=== PATIENT | female | born 1995 | race Caucasian/White ===

== ENCOUNTER 2025-01-09 15:30 | Outpatient (AMB) | payer OTHER, SELFPAY ==
--- NOTE | 2025-01-09 15:40 | A.OFFPC_ITS ---
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 Is last menstrual period known: Yes Last menstrual period: 01/03/25 Post menopausal: No Patient : No Allergies No Known Allergies Allergy (Verified 01/09/25 15:44) Tobacco use date assessed: 01/09/25 Dental Screening Dental Screen Date: 01/09/25 Did you have a dental visit in the last 12 months?: Yes Did you have a dental problem in the last 6 months where you did not have access to dental care?: No Was dental information given to patient?: Patient has dentist HPI HPI Comments History of Present Illness Details This is a 29-year-old female with a past medical history of anxiety presenting to establish care. She transferred from [facility]. Her last physical was over a year ago. She is frustrated about her weight. Within the past 6 months she has been following a daily exercise routine on her treadmill and walking outside. She is also following a low-carbohydrate diet and tried factor meals. She avoids alcohol and has decreased portion sizes. Despite all of this she has not been able to lose weight successfully. She is overweight by BMI of 26.8. Her vaccination records scanned into the chart. She received 2 doses of the Pfizer COVID-19 vaccine on 03/03/2021 and 04/02/2021. She would like refills on her control pill and anxiety medication. She ran out of fluoxetine a few weeks ago, and she has not felt great since then. She has increased anxiety. 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 Denies depression. 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 She is referred. ROS: Constitutional: No unexplained weight loss, fever, chills, fatigue or night sweats. Eyes: No vision changes, blurry vision, double vision, eye pain, eye redness, eye discharge. ENT: No hearing loss, sneezing, congestion, runny nose or sore throat. Respiratory: No shortness of breath, cough or sputum production. Cardiovascular: No chest pain, chest pressure or chest discomfort. No palpitations or pedal edema. Gastrointestinal: No anorexia, nausea, vomiting or diarrhea. No abdominal pain or blood in stool. Genitourinary: No dysuria, hematuria, urinary frequency. Neurologic: No headache, dizziness, syncope, unilateral weakness, ataxia, numbness or tingling in the extremities. Musculoskeletal: No muscle pain, back pain, joint pain or swelling. Hematologic/Lymphatics: No bleeding or bruising. No painful lymph nodes. Skin: No rash or itching. Endocrine: No cold or heat intolerance. No polyuria or polydipsia. Psychiatric: No depression. No SI/HI. Physical exam: Constitutional: Alert, in no distress. Head: Normocephalic. Eyes: Pupils are equal, round and reactive to light. Extraocular muscles intact. Ear, Nose and Throat: Canals clear. TMs normal. Normal nasal mucosa. No nasal discharge. No oral lesions. Neck: Supple, Full range of motion. No lymphadenopathy. No palpable thyroid masses. Respiratory: Clear to auscultation. Cardiovascular: S1 S2 regular. No murmurs. Gastrointestinal: Abdomen soft, non-tender, non-distended. Normal bowel sounds. No palpable masses. Genitourinary: No costovertebral angle tenderness. Neurologic: No focal neurological deficits. Symmetric patellar reflexes. Moves all extremities spontaneously. Sensation intact bilaterally. Skin: No rashes Musculoskeletal: No gross deformities. Normal range of motion. Extremities: Warm and well perfused. No clubbing, cyanosis or edema. 3+ peripheral pulses bilaterally. Psychiatric: Normal mood and affect [facility] Medical History (Updated 01/09/25 @ 17:54 by LOS French) Routine physical examination Overweight (BMI 25.0-29.9) Anxiety Screening for cardiovascular condition Family History (Updated 01/09/25 @ 17:56 by LOS French) Father Hypertension Alcoholism Maternal Grandmother Hypertension Diabetes Maternal Grandfather Pancreatic cancer Social History (Updated 01/09/25 @ 15:49 by Susan Chirinos MA) Housing: House Alcohol intake: current Comment: Socially Patient Tobacco Use Status: Never used Tobacco e-Cigarette/Vaping Use: Never Used Second Hand Smoke Exposure: No service: No Current occupational status: employed Current occupation: [employer] Current occupational exposures/hazards: No Cognitive needs: No Hearing needs: No Vision needs: No Female Reproductive History Menstrual Age of Menarche: 11 Duration of menses: 3-5 days Date of last menstrual period: 01/03/25 control method: pills Total pregnancies: 0 History of abnormal pap smear: No History of STI: No Date of Mammogram: 12/21/22 History of abnormal mammogram: No Questionnaire PHQ-9 Over the last 2 weeks, how often have you been bothered by any of the following problems? 1. Little interest or pleasure in doing things: not at all 2. Feeling down, depressed, or hopeless: not at all 3. Trouble falling or staying asleep, or sleeping too much: not at all 4. Feeling tired or having little energy: several days 5. Poor appetite or overeating: not at all 6. Feeling bad about yourself - or that you are a failure or have let yourself or your family down: not at all 7. Trouble concentrating on things, such as reading the newspaper or watching t elevision: not at all 8. Moving or speaking so slowly that other people could have noticed. Or the opposite - being so fidgety or restless that you have been moving around a lot more than usual: not at all 9. Thoughts that you would be better off or of hurting yourself in some way: not at all Total score: 1 Depression Screening Interpretation: Negative Depression Screening Done: Yes 55206 - PHQ-9 Billing: Patient declined-do not bill Source: Developed by Drs. Fermin Kendrick, Anel Jensen, Erik Sharp and colleagues, with an educational valerie from [employer]. Thrive Questionnaire Date Thrive assessed: 01/09/25 I am a: Patient What is your living situation today?: I have a steady place to live Within the past 12 months, did the food you bought not last and you didn't have the money to get more?: I choose not to answer this question Within the past 12 months, did you worry whether your food would run out before you got money to buy more?: I choose not to answer this question Do you have trouble paying for medicines?: I choose not to answer this question Do you have trouble getting transportation to medical appointments?: I choose not to answer this question Do you have trouble paying your heating and electricity bill?: I choose not to answer this question Do you have trouble taking care of your child, family member or friend?: No Do you have trouble with day-to-day activities such as bathing, preparing meals, shopping, managing finances, etc.?: No Are you currently unemployed and looking for a job?: No Are you interested in more education?: No Please select the resources that you would like help with: None Currently or been in a relationship where the following occur: No concerns reported THRIVE Score: 0 AUDIT C Alcohol Use Questionnaire (AUDIT-C) 1. How often do you have a drink containing alcohol?: 2-4 times a month 2. How many drinks containing alcohol do you have on a typical day when you are drinking?: 1 or 2 3. How often do you have six or more drinks on one occasion?: Never Total Score: 2 BEN-7 AMB Questionnaire BEN-7 Date BEN - 7 assessed: 01/09/25 Feeling nervous, anxious, or on edge: 1 = Several days Not being able to stop or control worryin = Several days Worrying too much about different things: 1 = Several days Trouble relaxin = Several days Being so restless that it is hard to sit still: 0 = Not at all Becoming easily annoyed or irritable: 1 = Several days Feeling afraid as if something awful might happen: 0 = Not at all Total BEN-7 score (0-4 normal; 5-9 mild; 10-14 moderate; 15-21 severe): 5 Source: Developed by Drs. Fermin Kendrick, Anel Jensen, Erik Sharp and colleagues, with an educational valerie from [employer]. BEN-7 Assessment Billing BEN-7 Assessment Tool: BEN-7 Assessment 43935 Physical exam (Primary Care) Vital Signs: Last Vital Signs Pulse 68 01/09/25 15:51 BP 108/62 01/09/25 15:51 Pulse Ox 99 01/09/25 15:51 Oxygen Delivery Method Room Air 01/09/25 15:51 BMI result Body Mass Index 26.8 Tobacco/Smoking Status: Tobacco use Status Tobacco use date assessed 01/09/25 01/09/25 16:01 Patient Tobacco Use Status Never used Tobacco 01/09/25 16:01 e-Cigarette/Vaping Use Never Used 01/09/25 16:01 PHQ-9: PHQ-9 Score PHQ-9: Total score 1 01/09/25 16:17 Depression Screening Interpretation: Negative Thrive Assessment: Date of Thrive Assessment Date Thrive assessed 01/09/25 01/09/25 16:01 Currently or been in a relationship where the following occur: No concerns reported Coding Level of Care Code New Pt Prev Care 18-39yr(47181 Diagnoses Anxiety F41.9 Screening for cardiovascular condition Z13.6 Overweight (BMI 25.0-29.9) E66.3 Routine physical examination Z00.00 Additional Codes BEN-7 Assessment Billing - BEN-7 Assessment Tool: BEN-7 Assessment 87621 ([id number]) Assessment & Plan Assessment & Plan (1) Anxiety: Code(s): F41.9 - Anxiety disorder, unspecified Category: Medical Plan: Restart fluoxetine 20 mg daily. (2) Screening for cardiovascular condition: Code(s): Z13.6 - Encounter for screening for cardiovascular disorders Category: Medical (3) Overweight (BMI 25.0-29.9): Code(s): E66.3 - Overweight Category: Medical Plan: Continue lifestyle modifications including decreasing portion sizes, low- carbohydrate and avoidance of caffeine. Check labs. She is interested in trying GLP 1 medication. She needs to check with her insurance to see if this will be covered and contact me. She denies contraindications to the medication. We reviewed side effects. (4) Routine physical examination: Code(s): Z00.00 - Encounter for general adult medical examination without abnormal findings Category: Medical Plan: Patient is seen today for a routine physical. As part of this visit we reviewed the following issues, which are considered and essential part of preventative health in this age group: - Breast Cancer screening - Annual Associate Trainer exam - Blood pressure screening - Cholesterol screening - Osteoporosis prevention including calcium/vitamin D intake, weight bearing exercise & smoking cessation - Nutritional and exercise counseling - Counseling of injury prevention including fire prevention, smoke alarms and seat belt usage - Screening for depression - Education about skin cancer - Recommendations about immunizations - Recommendation of an eye exam - Screening for substance abuse Plan Follow up in 3 months for med check. Orders: Orders Complete Blood Count no Diff Today F41.9 - Anxiety disorder, unspecified, Z13.6 - Encounter for screening for cardiovascular disorders Comprehensive Met. Panel Today F41.9 - Anxiety disorder, unspecified, Z13.6 - Encounter for screening for cardiovascular disorders TSH reflex Free T4 Today F41.9 - Anxiety disorder, unspecified, Z13.6 - Encounter for screening for cardiovascular disorders Lipid Panel Today E78.5 - Hyperlipidemia, unspecified, F41.9 - Anxiety disorder, unspecified, Z13.6 - Encounter for screening for cardiovascular disorders Referrals DIRECTOR PERSONAL Referral Z01.419 - Encounter for gynecological examination (general) (routine) without abnormal findings Medications: New fluoxetine 20 mg PO DAILY 90 caps 3RF norethindrone ac-eth estradiol 1.5-30 mg-mcg () 1 tab PO DAILY 189 tabs 3RF
[2025-01-09 15:51] VITALS: BP 108/62; PULSE 68; O2SAT 99; BMI 26.8
--- OUTSIDE RECORDS SUMMARY | 2025-01-09 16:52 | XMS_ITS ---
Author Organization [facility], [facility] Address [address], [place] [id number] Care Team Providers Care Register Repairer Name Role Phone BUNNY LEI Primary Care Provider Saira Sow [phone] REASON FOR VISIT Needs referral Encounters Encounter Location Date Provider Diagnosis [facility], [facility] [address], [place] [id number] 11/02/2023 Saira Sow PLAN OF TREATMENT No Information Progress Notes * NEW HOWELLDOB:1995 (28 yo F)Acc No.[id number]:11/02/2023 Patient:??NEW HOWELL :1995?Age:28 Y?Sex:Fe male Phone: Address:[address] [place] [phone] * true * Date:??
--- OUTSIDE RECORDS SUMMARY | 2025-01-09 16:52 | XMS_ITS ---
Author Organization [facility], [facility] Address [address] [place] [phone] Care Team Providers Care Content Writer Name Role Phone BUNNY LEI Primary Care Provider Saira Sow Unavailable [phone] ALLERGIES No Known Allergies REASON FOR VISIT cpe MEDICATIONS Medication SIG (Take, Route, Frequency, Duration) Notes Start Date End Date Status FLUoxetine HCl 20 MG TAKE 1 TABLET BY MO UTH EVERY DAY for 90 Active 1.5-30 MG-MCG TAKE 1 TABLET BY MOUTH EVERY DAY FOR 21 DAYS for 21 Active SOCIAL HISTORY Tobacco Use: Social History Observation Description Date Details (start date - stop date) Never Smoker NA - NA Sex Assigned At : Social History Observation Description Sex Assigned At Unknown Household Question Answer Notes Marital status: living with significant other Number of adults in household: 2 Tobacco Use/Smoking Question Answer Notes Tobacco use: nonsmoker Sexual History Question Answer Notes Had sex in the past 12 months (vaginal, oral, or anal)? Yes with Men only Have you ever had a Sexually transmitted disease ? No Section Notes: Lives in [place], [place] with roommate PROBLEMS Problem Type ICD Code Onset Dates Problem Status W/U Status Risk SNOMED Code Notes Problem Mixed hyperlipidemia (E78.2) Active confirmed 262172569 VITAL SIGNS Blood pressure systolic 122 mm Hg 12/21/19 24 Blood pressure diastolic 80 mm Hg 024 Heart Rate 84 /min 12/21/2023 Height 67 in 12/21/2023 Weight 169.0 lbs 12/21/2023 BMI 26.47 kg/m2 12/21/2023 Oximetry 98 % 12/21/2023 Height-cm 170.18 cm 12/21/2023 Weight-kg 76.66 kg 12/21/2023 Encounters Encounter Location Date Provider Diagnosis [facility], [address] [phone] 12/21/2023 Saira Sow Vitamin D deficiency E55.9 ; Encounter for general adult medical examination without abnormal findings Z00.00 ; Elevated high sensitivity C-reactive protein R79.82 ; Depression screening Z13.31 ; Encounter for screening for other disorder Z13.89 and Mixed hyperlipidemia E78.2 ASSESSMENTS Encounter Date Diagnosis Assessment Notes Treatment Notes Treatment Clinical Notes Section Notes 12/21/2023 Vitamin D deficiency (ICD-10 - E55.9) Increase Vit D rich foods Check levels periodically Supplement as indicated 12/21/2023 Encounter for general adult medical examination without abnormal findings (ICD-10 - Z00.00) We discussed short and long-term health goals. The exam today was without concerns, states feel safe at home. Reports having working CO2 and Smoke detectors. Encouraged to wear sunscreen. Reports wearing a seatbelt when driving or as a passenger. Encourage regular exercise of moderate intensity 30 min 5x/week. 12/21/2023 Elevated high sensitivity C-reactive protein (ICD-10 - R79.82) Will repeat with labs 12/21/2023 Depression screening (ICD-10 - Z13.31) PHQ9 Score: 2 low risk for major depressive disorder 12/21/2023 Encounter for screening for other disorder (ICD-10 - Z13.89) CAGE Questions Adapted to Include Drug Use (CAGE-AID) 1. Have you ever felt you ought to cut down on your drinking or drug use? N 2. Have people annoyed you by criticizing your drinking or drug use? N 3. Have you felt bad or guilty about your drinking or drug use? N 4. Have you ever had a drink or used drugs first thing in the morning to steady your nerves or to get rid of a hangover (eye-sumatra opener)? N Total Score: 0 Scoring: Item responses on the CAGE questions are scored 0 for no and 1 for yes answers, with a higher score being an indication of alcohol problems. A total score of two or greater is considered clinically significant. 12/21/2023 Mixed hyperlipidemia (ICD-10 - E78.2) PLAN OF TREATMENT Treatment Notes Assessment Notes Vitamin D deficiency Increase Vit D rich foods Check levels periodically Supplement as indicated Encounter for general adult medical examination without abnormal findings We discussed short and long-term health goals. The exam today was without concerns, states feel safe at home. Reports having working CO2 and Smoke detectors. Encouraged to wear sunscreen. Reports wearing a seatbelt when driving or as a passenger. Encourage regular exercise of moderate intensity 30 min 5x/week. Elevated high sensitivity C- reactive protein Will repeat with labs Depression screening PHQ9 Score: 2 low risk for major depressive disorder Encounter for screening for other disord er CAGE Questions Adapted to Include Drug Use (CAGE-AID) 1. Have you ever felt you ought to cut down on your drinking or drug use? N 2. Have people annoyed you by criticizing your drinking or drug use? N 3. Have you felt bad or guilty about your drinking or drug use? N 4. Have you ever had a drink or used drugs first thing in the morning to steady your nerves or to get rid of a hangover (eye-sumatra opener)? N Total Score: 0 Scoring: Item responses on the CAGE questions are scored 0 for no and 1 for yes answers, with a higher score being an indication of alcohol problems. A total score of two or greater is considered clinically significant. Future Test Test Name Order Date THYROID PEROXIDASE AND THYROGLOBULIN ANT IBODIES (7260) 12/21/2023 THYROID PANEL WITH TSH (7444) 12/21/2023 CARDIO IQ(R) LIPID PANEL (39834) 024 COMPREHENSIVE METABOLIC PANEL (48085) CARDIO IQ(R) LIPOPROTEIN (a) (28304) CBC (INCLUDES DIFF/PLT) (6399) URINALYSIS, COMPLETE W/REFLEX TO CULTURE (3020) 12/21/2023 SED RATE BY MODIFIED WESTERGREN (809) C-REACTIVE PROTEIN (4420) 12/21/2023 CARDIO IQ(R) HS CRP (09227) 12/21/2023 CARDIO IQ(R) HEMOGLOBIN A1c (03403) 12/07 CARDIO IQ(R) APOLIPOPROTEIN A1 (53937) 0 12/21/2023 CARDIO IQ(R) APOLIPOPROTEIN B (28946) CARDIO IQ(R) HOMOCYSTEINE (09316) 2023 CARDIO IQ(R) INSULIN (11343) 12/21/2023 CARDIO IQ(R) VITAMIN D, 25 HYDROXY (9173 5) 12/21/2023 Next Appt Details Follow Up: 3M; 1 year, Reaso n: lab FU; CPE Progress Notes * NEW HOWELLDOB:1995 (28 yo F)Acc No.[id number]:12/21/2023 Progress Note Patient:??NEW HOWELL Provider:??Saira Sow DNP :1995?Age:28 Y?Sex:Fe male Date:12/21/2023 Phone: Address:[address] [place] [address] Pcp:BUNNY LEI Subjective: * Chief Complaints: * ?Cpe * HPI: ?Patient Care Team:? Providers/Specialists: None at this time ?[facility] in [place] for PT. ?Visit info:? New presents in the office today for her annual physical. She did go and have an evaluation with the breast specialist and unfortunately was not a canidate for a reduction. She states that she does go to the dentist twice a week. No concerns at this time. * ROS:?General / Constitutional:?Patient denies??change in appetite, fever, weakness.?Allergy / Immunology:?Patient denies??congestion, cough, rash, seasonal allergies.?Ophthalmologic:?Patient denies??blurry vision, eye pain, flashes of light in the visual field, floaters in the visual field.?ENT:?Patient denies??blocked ear(s), ear pain, nosebleed, ringing in the ears, scratchy throat.?Endocrine:?Patient denies??cold intolerance, excessive sweating, excessive thirst, frequent urination.?Respiratory:?Patient denies??chest pain, pain with inspiration, shortness of breath, wheezing.?Cardiovascular:?Patient denies??chest pain, difficulty laying flat, palpitations, swelling in hands / feet.?Gastrointestinal:?Patient denies??abdominal pain, constipation, diarrhea, heartburn, nausea.?Genitourinary:?Patient denies??abdominal pain / swelling, blood in the urine, frequent urination, loss of urine with cough or laughter.?Musculoskeletal:?Patient complains of??back pain, back problems, neck pain, pain in shoulder(s).?Peripheral Vascular:?Patient denies??decreased sensation in extremities, pain / cramping in legs after exertion.?Skin:?Patient complains of??rash under bilateral breasts.?Neurologic:?Patient denies??confusion, headache, irritability.?Psychiatric:?Patient denies??anxiety, auditory / visual hallucinations, depressed mood, loss of appetite, stressors, substance abuse, suicidal thoughts.? * Medical History:?? 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 control??oral contraceptive pill.??Last pap smear date??12/08/22 neg per pt.?? * OB History:?? Histo ry:??Total pregnancies:??0.?? * Surgical History:??Denies Pa st Surgical History * Ocular Surgical History:?? * Hospitalization/Major Diagno stic Procedure:??Denies Past Hospitalization * Family History:??Father: ali ve, Stroke , Alcohol abuse .??Mother: alive, No Health Concern .??Maternal Grandfather: Other [place] .??Maternal Grandmother: Diabetes , Hypertension .??Sister: alive, no health concerns.??Sister 2: alive, Mental illness, Drug abuse (Heroin).??2 sister(s) . .?? * Social History:?Tobacco Use:??Tobacco Use/Smoking??Tobacco use:??nonsmoker.?Sexual History:??Sexual History??Had sex in the past 12 months (vaginal, oral, or anal)???Yes,??with??Men only,??Have you ever had a Sexually transmitted disease???No.?Drugs/Alcohol:??Do you smoke marijuana?: Denies. Do you drink alcohol?: Socially. 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 ?Lives in [place], [place] with roommate. * Medications:??TakingJunel 03/07 1.5-30 MG-MCG Tablet TAKE 1 TABLET BY MOUTH EVERY DAY FOR 21 DAYS FLUoxetine HCl 20 MG Tablet TAKE 1 TABLET BY MOUTH EVERY DAY Medication List reviewed and reconciled with the patientTaking [facility] MG-MCG Tablet TAKE 1 TABLET BY MOUTH EVERY DAY FOR 21 DAYS Taking FLUoxetine HCl 20 MG Tablet TAKE 1 TABLET BY MOUTH EVERY DAY Medication List reviewed and reconciled with the patient * Allergies:??N.K.D.A.no[Aller gies Verified] Objective: * Vitals:??BP:122/80mm Hg, HR: 84/min, Oxygen sat %:98%, Wt:169.0lbs, Wt-k.66 kg, Ht: 67 in, Ht-cm: 170.18 cm, BMI:26.47Index, Body Surface Area: 1.9. * Examination: ?General Examination: ?General appearance:??alert, pleasant, well-nourished and in no acute distress.?Head:??normocephalic, atraumatic.?Eyes:??pupils equal, round, reactive to light and accommodation.?Ears:??normal.?Nose:??nares patent, no lesions, sinuses nontender bilaterally, clear discharge.?Oral cavity:??normal, with good dentition, gums are normal, mucosa moist, no lesions.?Throat:??clear.?Neck / thyroid:??carotid pulses are normal and without bruits, neck is supple, with full range of motion and no cervical lymphadenopathy, no jugular venous distention, no masses and/or tenderness, normal thyroid size and shape without nodules, or tenderness, trachea midline.?Lymph nodes:??no axillary, supraclavicular or inguinal lymphadenopathy.?Skin:??skin is warm and dry, with no rashes, good skin turgor and normal hair distribution, with no suspicious skin lesions.?Heart:??regular rate without murmurs, gallops, clicks or rubs, S1 and S2 are normal and no S3 and S4 gallop.?Lungs:??clear to auscultation bilaterally, with good air movement and no rales, rhonchi or wheezes.?Abdomen:??soft with good bowel sounds, nontender, and no masses or hepatosplenomegaly, negative Torres's sign, no signs of ascites, no hernias present.?Extremities:??normal extremity with no clubbing, cyanosis or edema, full range of motion, good capillary refill in nail beds.?Peripheral pulses:??normal 2+ arterial pulses.?Neurologic:??cranial nerves 2-12 grossly intact, deep tendon reflexes 2+ symmetrical, gait normal, normal upper and lower extremity motor strength and function, normal exam with no motor or sensory deficits.?Psych:??alert and oriented x 3, cognitive function intact, cooperative with exam, maintains good eye contact, with good judgement and insight, normal affect / mood, thought process is logical and goal directed without suidical ideation or delusions.? Assessment: * Assessment: 1.??Encounter for general ad ult medical examination without abnormal findings - Z00.00 (Primary)??2.??Vitamin D deficiency - E55.9??3.??Elevated high sensitivity C-reactive protein - R79.82??4.??Depression screening - Z13.31??5.??Encounter for screening for other disorder - Z13.89??6.??Mixed hyperlipidemia - E78.2?? Plan: * Treatment: 2.??Vitamin D deficiency?LAB: CARDIO IQ(R) APOLIPOPROTEIN B (17236) (Ordered for 12/21/2023) ?LAB: CARDIO IQ(R) APOLIPOPROTEIN A1 (92557) (Ordered for 12/21/2023) ?LAB: CARDIO IQ(R) HEMOGLOBIN A1c (74997) (Ordered for 12/21/2023) ?LAB: CARDIO IQ(R) HOMOCYSTEINE (18454) (Ordered for 12/21/2023) ?LAB: CARDIO IQ(R) HS CRP (32537) (Ordered for 12/21/2023) ?LAB: CARDIO IQ(R) INSULIN (14833) (Ordered for 12/21/2023) ?LAB: CARDIO IQ(R) LIPID PANEL (57467) (Ordered for 12/21/2023) ?LAB: CARDIO IQ(R) LIPOPROTEIN (a) (10460) (Ordered for 12/21/2023) ?LAB: CARDIO IQ(R) VITAMIN D, 25 HYDROXY (25663) (Ordered for 12/21/2023) ?LAB: CBC (INCLUDES DIFF/PLT) (2131) (Ordered for 12/21/2023) ?LAB: COMPREHENSIVE METABOLIC PANEL (12626) (Ordered for 12/21/2023) ?LAB: C-REACTIVE PROTEIN (0257) (Ordered for 12/21/2023) ?LAB: SED RATE BY MODIFIED WESTERGREN (439) (Ordered for 12/21/2023) ?LAB: THYROID PANEL WITH TSH (4825) (Ordered for 12/21/2023) ?LAB: THYROID PEROXIDASE AND THYROGLOBULIN ANTIBODIES (6404) (Ordered for 12/21/2023) ?LAB: URINALYSIS, COMPLETE W/REFLEX TO CULTURE (6367) (Ordered for 12/21/2023) Notes: Increase Vit D rich foods Check levels periodically Supplement as indicated? 3.??Elevated high sensitivit y C-reactive protein?LAB: CARDIO IQ(R) APOLIPOPROTEIN B (44927) (Ordered for 12/21/2023) ?LAB: CARDIO IQ(R) APOLIPOPROTEIN A1 (11265) (Ordered for 12/21/2023) ?LAB: CARDIO IQ(R) HEMOGLOBIN A1c (36847) (Ordered for 12/21/2023) ?LAB: CARDIO IQ(R) HOMOCYSTEINE (53498) (Ordered for 12/21/2023) ?LAB: CARDIO IQ(R) HS CRP (64511) (Ordered for 12/21/2023) ?LAB: CARDIO IQ(R) INSULIN (40542) (Ordered for 12/21/2023) ?LAB: CARDIO IQ(R) LIPID PANEL (23941) (Ordered for 12/21/2023) ?LAB: CARDIO IQ(R) LIPOPROTEIN (a) (71538) (Ordered for 12/21/2023) ?LAB: CARDIO IQ(R) VITAMIN D, 25 HYDROXY (45589) (Ordered for 12/21/2023) ?LAB: CBC (INCLUDES DIFF/PLT) (0854) (Ordered for 12/21/2023) ?LAB: COMPREHENSIVE METABOLIC PANEL (14488) (Ordered for 12/21/2023) ?LAB: C-REACTIVE PROTEIN (0310) (Ordered for 12/21/2023) ?LAB: SED RATE BY MODIFIED WESTERGREN (009) (Ordered for 12/21/2023) ?LAB: THYROID PANEL WITH TSH (7250) (Ordered for 12/21/2023) ?LAB: THYROID PEROXIDASE AND THYROGLOBULIN ANTIBODIES (8837) (Ordered for 12/21/2023) ?LAB: URINALYSIS, COMPLETE W/REFLEX TO CULTURE (6404) (Ordered for 12/21/2023) Notes: Will repeat with labs? 4.??Depression screening?? Notes: PHQ9 Score: 2 low risk for major depressive disorder? 5.??Encounter for screening for other disorder?? Notes: CAGE Questions Adapted to Include Drug Use (CAGE-AID) 1. Have you ever felt you ought to cut down on your drinking or drug use? N 2. Have people annoyed you by criticizing your drinking or drug use? N 3. Have you felt bad or guilty about your drinking or drug use? N 4. Have you ever had a drink or used drugs first thing in the morning to steady your nerves or to get rid of a hangover (eye-sumatra opener)? N Total Score: 0 Scoring: Item responses on the CAGE questions are scored 0 for no and 1 for yes answers, with a higher score being an indication of alcohol problems. A total score of two or greater is considered clinically significant.? 6.??Mixed hyperlipidemia?LAB: CARDIO IQ(R) APOLIPOPROTEIN B (46600) (Ordered for 12/21/2023) ?LAB: CARDIO IQ(R) APOLIPOPROTEIN A1 (07410) (Ordered for 12/21/2023) ?LAB: CARDIO IQ(R) HEMOGLOBIN A1c (91952) (Ordered for 12/21/2023) ?LAB: CARDIO IQ(R) HOMOCYSTEINE (62117) (Ordered for 12/21/2023) ?LAB: CARDIO IQ(R) HS CRP (15758) (Ordered for 12/21/2023) ?LAB: CARDIO IQ(R) INSULIN (81168) (Ordered for 12/21/2023) ?LAB: CARDIO IQ(R) LIPID PANEL (25054) (Ordered for 12/21/2023) ?LAB: CARDIO IQ(R) LIPOPROTEIN (a) (74692) (Ordered for 12/21/2023) ?LAB: CARDIO IQ(R) VITAMIN D, 25 HYDROXY (57908) (Ordered for 12/21/2023) ?LAB: CBC (INCLUDES DIFF/PLT) (2099) (Ordered for 12/21/2023) ?LAB: COMPREHENSIVE METABOLIC PANEL (01897) (Ordered for 12/21/2023) ?LAB: C-REACTIVE PROTEIN (4720) (Ordered for 12/21/2023) ?LAB: SED RATE BY MODIFIED WESTERGREN (809) (Ordered for 12/21/2023) ?LAB: THYROID PANEL WITH TSH (7817) (Ordered for 12/21/2023) ?LAB: THYROID PEROXIDASE AND THYROGLOBULIN ANTIBODIES (6860) (Ordered for 12/21/2023) ?LAB: URINALYSIS, COMPLETE W/REFLEX TO CULTURE (2630) (Ordered for 12/21/2023) * Procedure Codes:??49393 BRIE F EMOTIONAL/BEHAV ASSMT, Units: 2.00 * Preventive Medicine:?Your Annual Wellness Plan:??BMI, height, and weight:??The recommended frequency is:??annually,??My BMI, height, and weight were taken on:??12/21/2023.??Blood pressure:??The recommended frequency is:??every two years, if blood pressure < /= 120/80 mm Hg, annually, if blood pressure >120-139/80-89 mm Hg,??My blood pressure was last taken on:??12/21/2023.??Breast cancer screening (mammogram):??The recommended frequency is:??every two years, ages 50-74.??Cervical cancer screening (Pap smear):??The recommended frequency is:??every three years, ages 21-64, every five years, ages 30-65 with human papillomavirus (HPV) testing,??My last Pap smear was done on:??12/08/22.??Cholesterol testing:??The recommended frequency is:??regularly beginning at age 20 with risk factors,??My cholesterol was last tested on:??11/16/22.??Diabetes screening:??The recommended frequency is:??with a sustained blood pressure >/= 135/80 mm Hg,??Screening for diabetes was last done on:??11/16/22.??Depression screening:??The recommended frequency is:??as necessary for those with risk factors,??Screening for depression was last done on:??12/21/2023.??Alcohol misuse screening:??The recommended frequency is:??as necessary for those with risk factors,??Screening for alcohol misuse was last done on:??12/21/2023.?Last CPE- 12/08/2022; 12/21/23 Colonoscopy: No Endoscopy: No Covid vac-yes Flu shot- no 11/16/22: insulin 3.1; glucose 77; A1c 4.6; Tcol 184; HDL 74; LDL 86; trigs 137; apo B 85; Vitamin D 21; TSH 1.7; hsCRO 8.1 12/08/22; hsCRP 7.4; SURYA positive; c-reactive 8.2; sed rate 6 03/10/23: hsCRP 1.6; c-reactice 1.9; sed rate 2; Ferritin 37; Methylmonic acid 84; homocysteine 11.2. * Follow Up:??3M; 1 year (Reas on: lab FU; CPE) Care Plan: * Problems:?? * Billing Information: * Visit Code:?? 21669 Preventive Care Est Pt. Age 18-39. * Procedure Codes:?? 80955 BRIEF EMOTIONAL/BEHAV ASSMT. Units: 2.00. * Sign off status: Completed true * Provider:??Saira Sow DNP Date:?? History and Physical Notes * HPI (History of Present Illness) Category Sub-Category Detail Notes Category Not es Patient Care Team Providers/Specialists: None at this time [facility] in [place] for PT Visit info New presents in the office today for her annual physical. She did go and have an evaluation with the breast specialist and unfortunately was not a canidate for a reduction. She states that she does go to the dentist twice a week. No concerns at this time. Examination Category Sub-Category Detail Notes Category Not es General Examination General appearance: alert, p leasant, well-nourished and in no acute distress Head: normocephalic, atrau matic Eyes: pupils equal, round, reactive to light and accommodation Ears: normal Nose: nares patent, no les ions, sinuses nontender bilaterally, clear discharge Throat: clear Neck / thyroid: carotid pulses are n ormal and without bruits, neck is supple, with full range of motion and no cervical lymphadenopathy, no jugular venous distention, no masses and/or tenderness, normal thyroid size and shape without nodules, or tenderness, trachea midline Heart: regular rate without murmurs, gallops, clicks or rubs, S1 and S2 are normal and no S3 and S4 gallop Lungs: clear to auscultatio n bilaterally, with good air movement and no rales, rhonchi or wheezes Abdomen: soft with good bowel sounds, nontender, and no masses or hepatosplenomegaly, negative Torres's sign, no signs of ascites, no hernias present Neurologic: cranial nerves 2-12 grossly intact, deep tendon reflexes 2+ symmetrical, gait normal, normal upper and lower extremity motor strength and function, normal exam with no motor or sensory deficits Skin: skin is warm and dry , with no rashes, good skin turgor and normal hair distribution, with no suspicious skin lesions Extremities: normal extremity wit h no clubbing, cyanosis or edema, full range of motion, good capillary refill in nail beds Peripheral pulses: normal 2+ arterial p ulses Lymph nodes: no axillary, supracl avicular or inguinal lymphadenopathy Psych: alert and oriented x 3, cognitive function intact, cooperative with exam, maintains good eye contact, with good judgement and insight, normal affect / mood, thought process is logical and goal directed without suidical ideation or delusions Oral cavity: normal, with good de ntition, gums are normal, mucosa moist, no lesions
--- OUTSIDE RECORDS SUMMARY | 2025-01-09 16:52 | XMS_ITS | Patient Health Record ---
Author Organization [facility] [employer] [facility] Address [address] [place] [phone] Care Team Providers Care Marketing Sales Consultant Name Role Phone BUNNY LEI Primary Care Provider [phone] Do Vegaie Unavailable [phone] ALLERGIES No Known Allergies REASON FOR REFERRAL No Information MEDICATIONS Medication SIG (Take, Route, Frequency, Duration) Notes Start Date End Date Status 1.5-30 MG-MCG TAKE 1 TABLET BY MOUTH EVERY DAY for 84 Active FLUoxetine HCl 20 MG TAKE 1 TABLET BY MO UTH EVERY DAY for 90 Active SOCIAL HISTORY Tobacco Use: Social History [...] disease ? 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 09363677 Problem Mixed hyperlipidemia (E78.2) Active confirmed 244874383 Problem Vitamin D deficiency (E55.9) Active confirmed 33236403 Problem Elevated high sensitivity C-reactive protein (R79.82) Active confirmed 513849737006874 Problem Positive SURYA (antinuclear antibody) (R76.8) Active confirmed 013131703 Problem Ingrown toenail of both feet (L60.0) Active confirmed [id number] Problem Large breasts (N62) Active confirmed 516301944 Problem Midline thoracic back pain, unspecified chronicity (M54.6) Active confirmed 422093519 Problem Bilateral pendulous breasts (N64.89) Active confirmed [id number] PLAN OF TREATMENT Future Test Test Name Order Date THYROID PEROXIDASE AND THYROGLOBULIN ANT IBODIES (7260) 12/21/2023 THYROID PANEL WITH TSH (7444) 12/21/2023 CARDIO IQ(R) LIPID PANEL (80456) 024 COMPREHENSIVE METABOLIC PANEL (80050) CARDIO IQ(R) LIPOPROTEIN (a) (17758) CBC (INCLUDES DIFF/PLT) (6399) URINALYSIS, COMPLETE W/REFLEX TO CULTURE (3020) 12/21/2023 SED RATE BY MODIFIED WESTERGREN (809) C-REACTIVE PROTEIN (4420) 12/21/2023 CARDIO IQ(R) HS CRP (87051) 12/21/2023 CARDIO IQ(R) HEMOGLOBIN A1c (46627) 12/07 CARDIO IQ(R) APOLIPOPROTEIN A1 (09667) 0 12/21/2023 CARDIO IQ(R) APOLIPOPROTEIN B (64196) CARDIO IQ(R) HOMOCYSTEINE (80379) 2023 CARDIO IQ(R) INSULIN (06976) 12/21/2023 CARDIO IQ(R) VITAMIN D, 25 HYDROXY (9173 5) 12/21/2023 Insurance Providers Payer Name Payer Address Payer Phone Subscriber Number Group Number Insured Name Patient Relationship to Insured Coverage Start Date Coverage End Date [facility] [address] [place]ONICA ROTHMAN [phone] [id number] NEW HOWELL Self - patient is the insured MEDICAL (GENERAL) HISTORY Medical History History ICD Code anxiety Surgical History Surgery Date(Month/Year)
--- OUTSIDE RECORDS SUMMARY | 2025-01-09 16:52 | XMS_ITS | Clinical Summary ---
Author Organization [facility] Address [address] [place] [address] Care Team Providers Care Detective Narcotics And Vice Name Role Phone Unavailable Primary Care Provider Unavailabl e Allergies No known active allergies Medications No known medications Active Problems No known active problems Social History Tobacco Use Types Packs/Day Years Used Date Smoking Tobacco: Never Smokeless Tobacco: Never Sex and Gender Information Value Date Recorded Sex Assigned at Not on file Gender Identity Not on file Sexual Orientation Not on file Job Start Date Occupation Industry Not on file Not on file Not on file Last Filed Vital Signs Vital Sign Reading Time Taken Comments Blood Pressure 120/70 03/03/2022 3:09 PM EDT Pulse 82 03/03/2022 3:09 PM EDT Temperature 36.2 ??C (97.1 ??F) 03/03/2022 3:09 PM ED T Respiratory Rate 14 03/03/2022 3:09 PM EDT Oxygen Saturation 98% 03/03/2022 3:09 PM EDT Inhaled Oxygen Concentration - - Weight 76.2 kg (168 lb) 03/03/2022 3:09 PM EDT Height 170.2 cm (5' 7 ) 03/03/2022 3:09 PM EDT Body Mass Index 26.31 03/03/2022 3:09 PM EDT Plan of Treatment Health Maintenance Due Date Last Done Comments Hepatitis B Vaccines (1 of 3 - 3-dose series) 1993 Hepatitis C Screening 1993 COVID-19 Vaccine (#1) 1993 Depression Screening 2005 BMI Counseling 2011 Preventative Health Evaluation 2011 Cervical Cancer Screening (Pap Smear) 2014 Influenza Vaccine (#1) 2024 07/21/2011 DTap / Tdap / Td (8 - Td or Tdap) 01/05/2031 01/05/2021, 05/19/2010, 04/30/1998, Additional history exists Pneumococcal Vaccine Aged Out No long er eligible based on patient's age to complete this topic RSV Ped < 20 months Aged Out No longe r eligible based on patient's age to complete this topic
--- OUTSIDE RECORDS SUMMARY | 2025-01-09 16:52 | XMS_ITS ---
Author Organization [facility], [facility] Address [address], [place] [id number] Care Team Providers Care Manager Of Internal Name Role Phone BUNNY LEI Primary Care Provider [phone] Saira Sow Unavailable [phone] REASON FOR VISIT Needs referral Encounters Encounter Location Date Provider Diagnosis [facility] [address], [place] [id number] 01/01/2024 BUNNY LEI PLAN OF TREATMENT No Information Progress Notes * NEW HOWELLDOB:1995 (28 yo F)Acc No.[id number]:01/01/2024 Patient:??NEW HOWELL :1995?Age:28 Y?Sex:Fe male Phone: Address:[address] [place] [id number] * true * Date:??
== END 2025-01-09 16:33 | disposition home or self-care (01) ==
LOC: HO.HMCFM 15:31
PROVIDERS: PCP Physician Assistant Medical; Visit Provider Physician Assistant Medical
DX: F41.9 Anxiety disorder, unspecified (principal); Z13.6 Encounter for screening for cardiovascular disorders; E66.3 Overweight; Z00.00 Encounter for general adult medical examination without abnormal findings

== ENCOUNTER → 2025-01-09 15:30 | Outpatient (BNVA) | payer OTHER, SELFPAY | PROVIDERS: PCP Physician Assistant Medical; Visit Provider Physician Assistant Medical | DX: Z00.00 Encounter for general adult medical examination without abnormal findings (principal); F41.9 Anxiety disorder, unspecified; E66.3 Overweight | CPT/HCPCS: 96127 ==

== ENCOUNTER 2025-02-20 09:14 | Outpatient (REF) | payer OTHER, SELFPAY ==
--- OUTSIDE RECORDS SUMMARY | 2025-02-20 09:49 | XMS_ITS | Clinical Summary ---
Author Organization [facility] Address [address] [place] [address] Care Team Providers Care Fitting Room Maintenance Mechanic Name Role Phone Unavailable Primary Care Provider [...]
[2025-02-20 11:52] LABS: Hematocrit 40.1 % (37.0-47.0); Hemoglobin 13.6 g/dl (12.0-16.0); Mean Corpuscular HGB Conc 33.9 g/dl (31.0-35.0); Mean Corpuscular Volume 88.5 fL (80.0-98.0); Mean Platelet Volume 11.2 fL (9.4-12.3); Platelet Count 268 X10*3/uL (160-400); Red Blood Count 4.53 X10*6/uL (4.20-5.50); Red Cell Distribution Width 12.7 % (11.0-16.0); White Blood Count 4.8 X10*3/uL (4.8-10.8)
[2025-02-20 12:18] LABS: Alanine Aminotransferase 20 U/L (0-31); Albumin Level 4.4 g/dL (3.5-5.0); Alkaline Phosphatase 73 U/L (39-117); Anion Gap 12 (12-20); Aspartate Amino Transferase 19 U/L (5-31); Bilirubin Total 0.5 mg/dL (0.0-1.0); Blood Urea Nitrogen 7 mg/dL (9-16); Calcium 9.6 mg/dL (8.4-10.2); Carbon Dioxide 24 mmol/L (22-29); Chloride 109 mmol/L (96-108); Cholesterol 176 mg/dL (<200); Estimated Glomerular Filt Rate > 60; Glucose Random 89 mg/dL (60-115); HDL Cholesterol 68 mg/dL (>40); LDL Cholesterol Calculated 85 mg/dL (<100); Potassium 4.3 mmol/L (3.3-5.1); Sodium 141 mmol/L (135-145); Total Protein 7.4 g/dL (6.5-8.0); Triglycerides 115 mg/dL (<150)
[2025-02-20 12:21] LABS: TSH reflex Free T4 1.74 uIU/mL (0.32-4.0)
== END 2025-02-20 09:15 | disposition home or self-care (01) ==
LOC: HO.WFDLDS 09:14
PROVIDERS: Visit Provider Physician Assistant Medical
DX: F41.9 Anxiety disorder, unspecified (principal); Z13.6 Encounter for screening for cardiovascular disorders; E78.5 Hyperlipidemia, unspecified
CPT/HCPCS: 36415; 80053; 80061; 84443; 85027

== ENCOUNTER 2025-02-24 08:58 | Outpatient (AMB) | payer OTHER, SELFPAY ==
--- NOTE | 2025-02-24 09:02 | MHC.PC.OV ---
Vital Signs 02/24/25 09:08 Height 5 ft 7 in Weight 165 lb 4 oz BMI 25.9 BP 104/78 Blood Pressure Location Lt brachial Position Sitting Pulse 93 Pulse Source Pulse Oximeter Temp 97.9 F Temp Source Temporal Artery Scan Pulse Oximetry (%) 98 Oxygen Delivery Method Room Air Intake Visit Reasons: med followup/heart rate Intake Note: Clara presents in the office for a follow up to her heart rate. Allergies No Known Allergies Allergy (Verified 02/24/25 09:04) Medication List - Last Reconciled 02/24/25 by LOS French fluoxetine 20 mg PO DAILY multivitamin (Daily Multi-Vitamin tablet) 1 tab PO DAILY norethindrone ac-eth estradiol 1.5-30 mg-mcg (June) 1 tab PO DAILY phentermine 30 mg (2 x 15 mg) PO DAILY Tobacco use date assessed: 02/24/25 Dental Screening Dental Screen Date: 02/24/25 Did you have a dental visit in the last 12 months?: Yes Did you have a dental problem in the last 6 months where you did not have access to dental care?: No Was dental information given to patient?: Patient has dentist HPI HPI Comments History of Present Illness Details This is a 29-year-old female who presents for a medication check. She started phentermine 15 mg daily on 02/10/2025. Her initial BMI and weight were 26.8 and 171 lb, respectively. Today her BMI is 25.9, and her weight is 165 lb and 4 oz. She is decreasing portion sizes, exercising and eating healthier foods. Patient says she is doing well on the medicine. She notes that her heart rate is a little faster, but she denies palpitations, chest pain, dizziness or syncope. She does wish to increase the dose to help curb her appetite. We also reviewed her lab results which were normal. ROS: Respiratory: No shortness of breath Cardiovascular: No chest pain, chest pressure or chest discomfort. No palpitations or pedal edema. Neurologic: No headache, dizziness, syncope Skin: No rash Physical exam: Constitutional: Alert, in no distress. Respiratory: Clear to auscultation. Cardiovascular: S1 S2 regular. No murmurs. Neurologic: No focal neurological deficits. Extremities: Warm and well perfused. No clubbing, cyanosis or edema. Psychiatric: Normal mood and affect [facility] Medical History (Updated 01/20/25 @ 15:12 by LOS French) Chronic back pain Macromastia Routine physical examination Overweight (BMI 25.0-29.9) Anxiety Screening for cardiovascular condition Family History Father Hypertension Alcoholism Maternal Grandmother Hypertension Diabetes Maternal Grandfather Pancreatic cancer Social History (Updated 02/24/25 @ 09:06 by Susan Chirinos MA) Housing: House Alcohol intake: current Comment: Socially Patient Tobacco Use Status: Never used Tobacco e-Cigarette/Vaping Use: Never Used Second Hand Smoke Exposure: No service: No Current occupational status: employed Current occupation: [employer] Current occupational exposures/hazards: No Cognitive needs: No Hearing needs: No Vision needs: No Female Reproductive History Menstrual Age of Menarche: 11 Questionnaire PHQ-9 Over the last 2 weeks, how often have you been bothered by any of the following problems? 1. Little interest or pleasure in doing things: not at all 2. Feeling down, depressed, or hopeless: not at all 3. Trouble falling or staying asleep, or sleeping too much: several days 4. Feeling tired or having little energy: several days 5. Poor appetite or overeating: not at all 6. Feeling bad about yourself - or that you are a failure or have let yourself or your family down: not at all 7. Trouble concentrating on things, such as reading the newspaper or watching television: not at all 8. Moving or speaking so slowly that other people could have noticed. Or the opposite - being so fidgety or restless that you have been moving around a lot more than usual: not at all 9. Thoughts that you would be better off or of hurting yourself in some way: not at all Total score: 2 Depression Screening Interpretation: Negative Depression Screening Done: Yes 63761 - PHQ-9 Billing: Yes Source: Developed by Drs. Fermin Kendrick, Anel Jensen, Erik Sharp and colleagues, with an educational valerie from [employer]. Thrive Questionnaire Date Thrive assessed: 02/24/25 I am a: Patient What is your living situation today?: I have a steady place to live Within the past 12 months, did the food you bought not last and you didn't have the money to get more?: I choose not to answer this question Within the past 12 months, did you worry whether your food would run out before you got money to buy more?: I choose not to answer this question Do you have trouble paying for medicines?: I choose not to answer this question Do you have trouble getting transportation to medical appointments?: I choose not to answer this question Do you have trouble paying your heating and electricity bill?: I choose not to answer this question Do you have trouble taking care of your child, family member or friend?: No Do you have trouble with day-to-day activities such as bathing, preparing meals, shopping, managing finances, etc.?: No Are you currently unemployed and looking for a job?: No Are you interested in more education?: No Please select the resources that you would like help with: None Currently or been in a relationship where the following occur: No concerns reported THRIVE Score: 0 AUDIT C Alcohol Use Questionnaire (AUDIT-C) 1. How often do you have a drink containing alcohol?: 2-4 times a month 2. How many drinks containing alcohol do you have on a typical day when you are drinking?: 3 or 4 3. How often do you have six or more drinks on one occasion?: Never Total Score: 3 Score Reviewed/Action Taken: No BEN-7 AMB Questionnaire BEN-7 Date BEN - 7 assessed: 01/09/25 Source: Developed by Drs. Fermin Kendrick, Anel Jensen, Erik Sharp and colleagues, with an educational valerie from [employer]. Physical exam (Primary Care) Vital Signs: Last Vital Signs Temp 97.9 F 02/24/25 09:08 Pulse 93 02/24/25 09:08 BP 104/78 02/24/25 09:08 Pulse Ox 98 02/24/25 09:08 Oxygen Delivery Method Room Air 02/24/25 09:08 BMI result Body Mass Index 25.9 Tobacco/Smoking Status: Tobacco use Status Tobacco use date assessed 02/24/25 02/24/25 09:06 Patient Tobacco Use Status Never used Tobacco 02/24/25 09:06 e-Cigarette/Vaping Use Never Used 02/24/25 09:06 PHQ-9: PHQ-9 Score PHQ-9: Total score 2 02/24/25 09:22 Depression Screening Interpretation: Negative Thrive Assessment: Date of Thrive Assessment Date Thrive assessed 02/24/25 02/24/25 09:10 Currently or been in a relationship where the following occur: No concerns reported Office Procedures EKG Details: EKG shows NSR and ventricular rate 87 bpm 37369-Nitilamjekcgeeejs, Complete Coding Level of Care Code Est Pt Level 3 (56504) Complex EM visit Add On G2211 Diagnoses Overweight (BMI 25.0-29.9) E66.3 CPT Codes EKG - CPT: 32040-Ivkmenyukkamrunle, Complete ([id number]) Additional Codes PHQ-9 - 95080 - PHQ-9 Billing: Yes ([id number]) Assessment & Plan Assessment & Plan (1) Overweight (BMI 25.0-29.9): Code(s): E66.3 - Overweight Category: Medical Plan Her EKG is normal today with a heart rate of 87 beats per minute. She has lost some weight after starting phentermine, and she will increase to 30 mg daily. Advised patient she can take this in the morning or divide the dose twice daily, but I do not recommend evening administration. Reviewed side effects, and she will contact the office if she has any difficulty with the medication. Continue lifestyle modifications. Follow up in 6 weeks. Orders: Orders AMB EKG-In Office Today R00.0 - Tachycardia, unspecified Medications: Changed From phentermine administer before or 1-2 hours after breakfast 15 mg PO DAILY 30 caps 0RF To phentermine administer before or 1-2 hours after breakfast 30 mg (2 x 15 mg) PO DAILY 60 caps 1RF
[2025-02-24 09:08] VITALS: BP 104/78; PULSE 93; TEMP 36.6; O2SAT 98; BMI 25.9
--- OUTSIDE RECORDS SUMMARY | 2025-02-24 09:10 | XMS_ITS | Clinical Summary ---
Author Organization [facility] Address [address] [place] [address] Care Team Providers Care Video Editing Internship Name Role Phone Unavailable Primary Care Provider [...]
== END 2025-02-24 09:40 | disposition home or self-care (01) ==
LOC: HO.HMCFM 08:59
PROVIDERS: PCP Physician Assistant Medical; Visit Provider Physician Assistant Medical
DX: E66.3 Overweight (principal)

== ENCOUNTER → 2025-02-24 08:58 | Outpatient (BNVA) | payer OTHER, SELFPAY | PROVIDERS: PCP Physician Assistant Medical; Visit Provider Physician Assistant Medical | DX: E66.3 Overweight (principal); R00.0 Tachycardia, unspecified; Z68.25 Body mass index [BMI] 25.0-25.9, adult | CPT/HCPCS: 93005; 96127 ==

== ENCOUNTER 2025-04-14 11:38 | Outpatient (AMB) | payer OTHER, SELFPAY ==
--- NOTE | 2025-04-14 11:42 | MHC.PC.OV ---
Vital Signs 04/14/25 11:47 Height 5 ft 7 in Weight 165 lb 2 oz BMI 25.9 BP 116/78 Blood Pressure Location Rt brachial Position Sitting Pulse 91 Pulse Source Pulse Oximeter Temp 98.6 F Temp Source Temporal Artery Scan Pulse Oximetry (%) 97 Oxygen Delivery Method Room Air Intake Visit Reasons: weight med check Intake Note: Clara presents in the office today for a weight medication check in. Allergies No Known Allergies Allergy (Verified 04/14/25 11:45) Tobacco use date assessed: 04/14/25 Dental Screening Dental Screen Date: 04/14/25 Did you have a dental visit in the last 12 months?: Yes Did you have a dental problem in the last 6 months where you did not have access to dental care?: No Was dental information given to patient?: Patient has dentist HPI HPI Comments History of Present Illness Details This is a 29-year-old female who presents for a medication check. She started phentermine 15 mg daily on 02/10/2025. She titrated the dose to 30 mg, but she experienced headaches and dizziness so she lowered it to 15 mg a day. She then got COVID-19 in March and was on DayQuil, and she discontinued phentermine while she was using it. She restarted phentermine a week ago. She likes it helps her feel more motivated to work on weight loss and decreases her appetite. Her initial BMI and weight were 26.8 and 171 lb, respectively. Today her BMI is 25.9, and her weight is 165 lb and 2 oz. She is decreasing portion sizes, exercising and eating healthier foods. ROS: Respiratory: No shortness of breath Cardiovascular: No chest pain, chest pressure or chest discomfort. No palpitations or pedal edema. Neurologic: No headache, dizziness, syncope Skin: No rash Physical exam: Constitutional: Alert, in no distress. Respiratory: Clear to auscultation. Cardiovascular: S1 S2 regular. No murmurs. Neurologic: No focal neurological deficits. Extremities: Warm and well perfused. No clubbing, cyanosis or edema. Psychiatric: Normal mood and affect [facility] Medical History (Updated 01/20/25 @ 15:12 by LOS French) Chronic back pain Macromastia Routine physical examination Overweight (BMI 25.0-29.9) Anxiety Screening for cardiovascular condition Family History Father Hypertension Alcoholism Maternal Grandmother Hypertension Diabetes Maternal Grandfather Pancreatic cancer Social History (Updated 04/14/25 @ 11:47 by Susan Chirinos MA) Housing: House Alcohol intake: current Comment: Socially Patient Tobacco Use Status: Never used Tobacco e-Cigarette/Vaping Use: Never Used Second Hand Smoke Exposure: No service: No Current occupational status: employed Current occupation: [employer] Current occupational exposures/hazards: No Cognitive needs: No Hearing needs: No Vision needs: No Female Reproductive History Menstrual Age of Menarche: 11 Questionnaire Thrive Questionnaire Date Thrive assessed: 01/02/25 I am a: Patient What is your living situation today?: I have a steady place to live Within the past 12 months, did the food you bought not last and you didn't have the money to get more?: I choose not to answer this question Within the past 12 months, did you worry whether your food would run out before you got money to buy more?: I choose not to answer this question Do you have trouble paying for medicines?: I choose not to answer this question Do you have trouble getting transportation to medical appointments?: I choose not to answer this question Do you have trouble paying your heating and electricity bill?: I choose not to answer this question Do you have trouble taking care of your child, family member or friend?: No Do you have trouble with day-to-day activities such as bathing, preparing meals, shopping, managing finances, etc.?: No Are you currently unemployed and looking for a job?: No Are you interested in more education?: No Please select the resources that you would like help with: None Currently or been in a relationship where the following occur: No concerns reported THRIVE Score: 0 BEN-7 AMB Questionnaire BEN-7 Date BEN - 7 assessed: 01/09/25 Source: Developed by Drs. Fermin Kendrick, Anel Jensen, Erik Sharp and colleagues, with an educational valerie from [employer]. Physical exam (Primary Care) Vital Signs: Last Vital Signs Temp 98.6 F 04/14/25 11:47 Pulse 91 04/14/25 11:47 BP 116/78 04/14/25 11:47 Pulse Ox 97 04/14/25 11:47 Oxygen Delivery Method Room Air 04/14/25 11:47 BMI result Body Mass Index 25.9 Tobacco/Smoking Status: Tobacco use Status Tobacco use date assessed 04/14/25 04/14/25 11:50 Patient Tobacco Use Status Never used Tobacco 04/14/25 11:47 e-Cigarette/Vaping Use Never Used 04/14/25 11:47 Thrive Assessment: Date of Thrive Assessment Date Thrive assessed 01/02/25 04/14/25 11:43 Currently or been in a relationship where the following occur: No concerns reported Coding Level of Care Code Est Pt Level 3 (99374) Complex EM visit Add On G2211 Diagnoses Overweight (BMI 25.0-29.9) E66.3 Assessment & Plan Assessment & Plan (1) Overweight (BMI 25.0-29.9): Code(s): E66.3 - Overweight Category: Medical Plan She will continue phentermine 15 mg daily for the next 2 months and then try discontinuing the medication. We discussed it is only for short term use. We discussed Wellbutrin which is sometimes used off-label to decrease food cravings however she has a history of childhood seizure age 10 so I do not recommend using this medicine. Continue lifestyle modifications. Follow up in ten weeks.
[2025-04-14 11:47] VITALS: BP 116/78; PULSE 91; TEMP 37; O2SAT 97; BMI 25.9
--- OUTSIDE RECORDS SUMMARY | 2025-04-14 12:31 | XMS_ITS | Clinical Summary ---
Author Organization [facility] Address [address] [place] [address] Care Team Providers Care Load Tester Name Role Phone Unavailable Primary Care Provider [...] 82 03/03/2022 3:09 PM EDT Temperature 36.2 C (97.1 F) 03/03/2022 3:09 PM EDT Respiratory Rate 14 03/03/2022 3:09 PM EDT [...] Cancer Screening (Pap Smear) 2014 Influenza Vaccine (Season Ended) 2025 07/21/2011 DTap / Tdap / Td (8 - Td or Tdap) 01/05/2031 01/05/2021, 05/19/2010, 04/30/1998, Additional history exists Pneumococcal Vaccine Aged Out No long er eligible based on patient's age to complete this topic RSV Ped < 20 months Aged Out No longe r eligible based on patient's age to complete this topic
== END 2025-04-14 12:04 | disposition home or self-care (01) ==
LOC: HO.HMCFM 11:39
PROVIDERS: PCP Physician Assistant Medical; Visit Provider Physician Assistant Medical
DX: E66.3 Overweight (principal)